=== PATIENT | male | born 1975 | race Two or more races ===

== ENCOUNTER 2017-06-27 21:21 | Emergency (ER) | payer MEDICAID ==
[~2017-06-27] VITALS: Ht 175.3 cm; Wt 88.5 kg
[2017-06-27 21:31] VITALS: BP 158/89
== END 2017-06-27 23:22 | disposition home or self-care (01) ==
LOC: ER 21:21
DX: R11.0 Nausea (principal); F17.210 Nicotine dependence, cigarettes, uncomplicated; F12.10 Cannabis abuse, uncomplicated
CPT/HCPCS: 82962

== ENCOUNTER 2019-03-31 05:48 | Emergency (ER) | payer MEDICAID ==
[~2019-03-31] VITALS: Ht 175.3 cm; Wt 86.2 kg
[2019-03-31 06:35] VITALS: BP 127/81
== END 2019-03-31 07:24 | disposition home or self-care (01) ==
LOC: ER 05:48
DX: J02.9 Acute pharyngitis, unspecified (principal)

== ENCOUNTER 2021-01-30 11:46 | Emergency (ER) | payer MEDICAID ==
[~2021-01-30] VITALS: Ht 175.3 cm; Wt 90.7 kg
[2021-01-30 14:33] LABS: Basophils # (auto) 0 10 ^3/uL (0-0.2); Basophils % (auto) 0.5 % (0.0-2.0); Eosinophils # (auto) 0.1 10 ^3/uL (0-0.8); Eosinophils % (auto) 1.8 % (0.0-7.0); Hemoglobin 16.6 g/dL (13.5-17.5); Lymphocytes % (auto) 25.1 % (10.0-50.0); Mean Corpuscular Hemoglobin 30.7 pg (28.0-32.0); Mean Corpuscular Hgb Conc. 33.9 g/dL (32.0-36.0); Mean Corpuscular Volume 90.5 fL (80.0-100.0); Monocytes # (auto) 0.7 10 ^3/uL (0-1.3); Monocytes % (auto) 8.1 % (0.0-12.0); Neutrophils # (auto) 5.2 10 ^3/uL (1.6-8.6); Neutrophils % (auto) 64.5 % (37.0-80.0); Nucleated Red Blood Cells % 0.1 %; Red Blood Cells 5.41 10^6/uL (4.5-5.90); Red Cell Distribution Width 13.7 % (11.8-14.3); White Blood Cell 8.1 10^3/uL (4.4-10.8)
[2021-01-30 14:46] LABS: Albumin 3.7 g/dL (3.4-5.0); Calcium 8.6 mg/dL (8.5-10.1); Potassium 4.2 mmol/L (3.5-5.1)
[2021-01-30 14:51] LABS: BUN/Creatinine Ratio 16.3; Bilirubin, Total 0.2 mg/dL (0.2-1.0); Total Protein 6.8 g/dL (6.4-8.2)
[2021-01-30] MEDS ORDERED: ASPirin 81 mg TAB PO ONE (15:15)
[2021-01-30 15:30] VITALS: BP 132/80
== END 2021-01-30 15:53 | disposition home or self-care (01) ==
LOC: ER 11:46
DX: R07.89 Other chest pain (principal); F41.9 Anxiety disorder, unspecified
CPT/HCPCS: 36415; 70450; 71045; 80053; 84484; 85025